=== PATIENT | male | born 1955 | race Caucasian/White ===

== ENCOUNTER 2025-02-19 11:49 | Day surgery (SDC) | payer MEDICARE, BC ==
[2025-02-15 12:31] LABS: MEAN PLATELET VOLUME 10.0 FL (7.4-10.4); RED CELL DISTRIBUTION WIDTH 16.9 % (11.5-14.5)
[2025-02-15 12:45] LABS: APTT 24 SECONDS (22-32); INR 1.0 INR
[2025-02-15 12:50] LABS: CHOL/HDL RATIO 4.5 (0.00-4.99); CREATININE 5.28 MG/DL (0.60-1.10); LDL CHOLESTEROL 140 MG/DL (50-100); TOTAL CARBON DIOXIDE 27.6 MMOL/L (24-32); eGFR 11 ML/MIN
[~2025-02-19] VITALS: Ht 180.3 cm; Wt 86.5 kg
[2025-02-19] VITALS (9 sets, daily range): BP systolic 92–172; BP diastolic 35–83; PULSE 48–64; RESP 16; TEMP 98.7; O2SAT 97–100
[2025-02-19] MEDS ORDERED: ABIR250T PO (12:16)
[2025-02-19] MEDS ORDERED: PRED5TAB PO (12:16)
[2025-02-19] MEDS ORDERED: ASPI-1265 PO (12:17)
[2025-02-19] MEDS ORDERED: GABA-530 PO (12:18)
[2025-02-19] MEDS ORDERED: LACO100T14 PO (12:18)
[2025-02-19] MEDS ORDERED: MIRT-88 PO (12:18)
[2025-02-19] MEDS ORDERED: AMLO10TA13 PO (12:18)
--- NOTE | 2025-02-19 12:43 | ELECTROCARDIOGRAPH REPORT ---
[facility] Test Date: 2025-02-19 Test Time: 13:38:20 Pat Name: KELSEY MAURICE Department: [facility] Patient ID: [facility]-[id number] Room: Gender: M [employer]: : 1955 Requested By: JOELLE FERNANDEZ Order Number: [id number] Reading MD: Dr. MYRIAM Crawford Measurements Intervals [place] Rate: 54 P: -63 SC: 199 QRS: -14 QRSD: 104 T: 190 QT: 439 QTc: 416 Interpretive Statements Sinus or ectopic atrial rhythm LVH with secondary repolarization abnormality Electronically Signed On 02-19-2025 13:22:[address] MYRIAM Crawford Please click the below link to view image of tracing.
[2025-02-19] MEDS ORDERED: LIDOcaine 1% (10mg/ml) 2ml vial ONE (14:52)
[2025-02-19] MEDS ORDERED: heparin 1,000unit/ml 10ml vial 10 ML ONE (14:53)
[2025-02-19] MEDS ORDERED: midazolam 1 mg/ML 2ml injection ONE ×2 (14:53→15:46)
[2025-02-19] MEDS ORDERED: verapamil 2.5 mg/ml inj IV ONE (14:53)
[2025-02-19] MEDS ORDERED: fentaNYL/PF 50MCG/1 ML 2ML syringe ONE (14:53)
[2025-02-19] MEDS ORDERED: nitroGLYCERIN 500mcg/5mL D5W 5 ML IV ONE (14:54)
[2025-02-19] MEDS ORDERED: LIDOcaine 1% 30ml preserv. free vial ONE (15:38)
[2025-02-19] MEDS ORDERED: hydrALAZINE 20mg/ml inj. ONE (16:17)
[2025-02-19] MEDS ORDERED: OXAZEpam 15mg capsule PO PRN (17:10)
[2025-02-19] MEDS ORDERED: ondansetron/PF 4mg/2ml inj IV PRN (17:10)
[2025-02-19] MEDS ORDERED: HYDROcodone/acetaminophen 5mg/325mg tablet PO PRN (17:10)
[2025-02-19] MEDS ORDERED: HYDROcodone/acetaminophen 10/325mg tab PO PRN (17:10)
[2025-02-20 05:53] LABS: ISTAT HGB MIX 10.5 g/dl (14.0-17.9); ISTAT Hct MIX 31 %PCV (42-52); ISTAT O2 SATURATION MIX VENOUS 66 % (60-80); ISTAT SOURCE VEN
--- NOTE | 2025-03-10 07:53 | CARDIOLOGY REPORT ---
DATE OF SERVICE: 02/19/2025 DICTATING PHYSICIAN: Jeffrey Max MD CARDIAC CATHETERIZATION REPORT DATE OF STUDY: 02/19/2025 PROCEDURES: 1. Right heart catheterization. 2. Selective coronary angiography. 3. Conscious sedation monitoring time for 30 minutes. INDICATION: Aortic stenosis. PHYSICIAN: Jeffrey Max MD DESCRIPTION OF PROCEDURE: After informed consent was obtained, the patient was brought to the lab where he was prepped and draped in the usual sterile fashion. A 6-Tajik sheath was inserted into the right common femoral artery and an 8-Tajik sheath in the right femoral vein. Thereafter, using a JL4 followed by a JR4 catheter, selective coronary angiography was performed. Next, using a Rheems-Kaur catheter, the catheter was advanced under fluoroscopic guidance into the outflow tract and into a wedge position where pulmonary capillary wedge pressure and right-sided pressures were obtained. Hemostasis was then obtained using manual pressure. HEMODYNAMICS: For the patient's hemodynamics, please refer to the event log. Pulmonary capillary wedge pressure was 11/13 with a mean of 10 mmHg. Pulmonary arterial pressure was 35/19 with a mean of 24 mmHg. Right ventricular pressure was 35/19 with a mean of 24 mmHg. Right atrial pressure was 20/17 with a mean of 16 mmHg. PA saturation was 66%. AO saturation 96%. Cardiac output by thermal dilution was 4.9 L per minute; by Jarod 2.4 L per minute. FINDINGS: The left main coronary arteries are normal caliber vessel, free of significant disease. The left anterior descending coronary artery is a medium caliber vessel. Calcification versus stent in the mid LAD is noted. The diagonal branch of the LAD has 70%-80% ostial and proximal stenosis. The circumflex coronary artery is a large caliber vessel. There appears to be a stent in the obtuse marginal branch of the circumflex coronary artery. A division immediately at the takeoff of the obtuse marginal branch is a small caliber vessel with an 80% stenosis. The right coronary artery is a medium caliber calcified vessel that also appears to have previously deployed stent in the proximal to mid RCA. 20%-30% distal stenosis is also noted. IMPRESSION: 1. Patent stent in the LAD. The diagonal branch of the LAD has a long 70%-80% ostial/proximal stenosis. 2. Patent circumflex coronary artery stent with an 80%-90% stenosis of a small division of the obtuse marginal branch. 3. Patent RCA proximal to mid stent with 20%-30% in-stent restenosis. 4. The patient's mean pulmonary capillary wedge pressure is 10 mmHg and mean pulmonary arterial pressure is 24 mmHg. 5. Cardiac output is 4.9 L per minute by thermal dilution. Jeffrey Max MD TID: [id number] RECEIPT: [id number] SHANNAN/IRINEO
== END 2025-02-19 19:45 | disposition home or self-care (01) ==
LOC: SSTAY O 11:49
PROVIDERS: ATTEND Student in an Organized Health Care Education/Training Program
DX: T82.855A Stenosis of coronary artery stent, initial encounter (principal); I35.0 Nonrheumatic aortic (valve) stenosis; I10 Essential (primary) hypertension; I25.10 Atherosclerotic heart disease of native coronary artery without angina pectoris; E78.00 Pure hypercholesterolemia, unspecified; Z79.82 Long term (current) use of aspirin; Z79.899 Other long term (current) drug therapy; Z88.2 Allergy status to sulfonamides; Z88.8 Allergy status to other drugs, medicaments and biological substances; Y83.1 Surgical operation with implant of artificial internal device as the cause of abnormal reaction of the patient, or of later complication, without mention of misadventure at the time of the procedure; Y92.89 Other specified places as the place of occurrence of the external cause
CPT/HCPCS: 36415; 80048; 80061; 82803; 85014; 85025; 85610; 85730; 93005; 93456; 99152; 99153; A6258; A6402; C1751; C1760; C1769; C1894; J0360; J1644; J2003; J2250; J3010; J3490; J7030; Q0163; Q9967; Z7610

== ENCOUNTER 2025-04-09 10:10 | Outpatient (CLI) | payer MEDICARE, BC ==
[~2025-04-09 10:10] MED LIST: ABIR250T PO; AMLO10TA13 PO; ASPI-1265 PO; GABA-530 PO; IODIXANOL 320 MG/ML INFUS..BTL 100ML IV ONE; LACO100T14 PO; MIRT-88 PO; PRED5TAB PO
[2025-04-09 10:45] LABS: MEAN PLATELET VOLUME 9.6 FL (7.4-10.4); RED CELL DISTRIBUTION WIDTH 15.4 % (11.5-14.5)
[2025-04-09 10:57] LABS: APTT 28 SECONDS (22-32); INR 1.0 INR
[2025-04-09 11:00] LABS: CREATININE 4.81 MG/DL (0.60-1.10); TOTAL CARBON DIOXIDE 27.2 MMOL/L (24-32); eGFR 12 ML/MIN
--- NOTE | 2025-04-09 11:50 | RADIOLOGY REPORT ---
CHEST RADIOGRAPH INDICATION: SOB TAVR TECHNIQUE: Frontal and lateral view of the chest was obtained COMPARISON: None FINDINGS: Lines and Tubes: None Lungs: Increased interstitial markings right middle lobe. Focal pneumonitis can not be excluded. No consolidation. Pleura: No effusion. No pneumothorax. Cardiomediastinal contours: Unremarkable Bones: Unremarkable IMPRESSION: 1. Increased interstitial markings right middle lobe. 2. Focal pneumonitis can not be excluded.
[2025-04-09] MEDS ORDERED: IODIXANOL 320 MG/ML INFUS..BTL 100ML IV ONE (12:09)
--- NOTE | 2025-04-10 13:27 | RADIOLOGY REPORT ---
CT CTA TAVR INDICATION: Aortic stenosis TECHNIQUE: Gated CT angiography of the heart was performed along with CT angiography of the lower neck, chest, abdomen, and pelvis. MIP, MPR, and 3-D images were obtained. Measurements were performed on the [employer] workstation. All CT scans at this facility use dose modulation, iterative reconstruction, and/or weight based dosing when appropriate to reduce radiation dose to as low as reasonably achievable. COMPARISON: None available at the time of dictation. FINDINGS: ANNULAR PLANE DISTANCE: 29.3 x 23.7 mm AREA: 5.01 cm2 AVERAGE DIAMETER: 26.5 mm PERIMETER: 80.9 mm LEFT CORONARY ARTERY HEIGHT ABOVE ANNULAR PLANE: 19.1 mm RIGHT CORONARY ARTERY HEIGHT ABOVE ANNULAR PLANE: 19.2 mm LEFT CORONARY SINUS DIAMETER: 36.7 mm RIGHT CORONARY SINUS DIAMETER: 36.2 mm NONCORONARY CORONARY SINUS DIAMETER: 36.9 mm SINOTUBULAR JUNCTION DIAMETER: 28.9 mm RIGHT COMMON ILIAC ARTERY MINIMAL DIMENSIONS: 9.79 mm RIGHT EXTERNAL ILIAC ARTERY MINIMAL DIMENSIONS: 8.99 mm RIGHT COMMON FEMORAL ARTERY MINIMAL DIMENSIONS: 6.88 mm LEFT COMMON ILIAC ARTERY MINIMAL DIMENSIONS: 10.3 mm LEFT EXTERNAL ILIAC ARTERY MINIMAL DIMENSIONS: 8.21 mm LEFT COMMON FEMORAL ARTERY MINIMAL DIMENSIONS: 6.59 mm [LOWER NECK]: Unremarkable [LYMPH NODES/MEDIASTINUM]: No abnormal lymph nodes by CT size criteria [CARDIOVASCULAR]: Normal cardiac size. No pericardial effusion. No aneurysmal dilatation of the great vessels. Coronary artery calcifications. [LUNG PARENCHYMA/PLEURAL SPACE]: No consolidation. Areas of pleural-parenchymal scarring located in the anterior segment, right upper lobe. Atelectasis in bilateral lung bases. No pleural effusion or pneumothorax. [CHEST WALL]: Mild bilateral gynecomastia. [LIVER]: Normal hepatic size without suspicious focal lesion. [SPLEEN]: Small hypoattenuating lesion along the medial aspect of the spleen measuring 0.8 cm, likely benign. [PANCREAS]: Unremarkable. [GALLBLADDER AND BILIARY TREE]: No biliary dilatation. Slight mucosal hyperenhancement gallbladder without definitive cholelithiasis [ADRENAL GLANDS]: Slight fatty infiltration of the superior aspect of the left adrenal gland without significant thickening which may represent sequelae of infection /inflammation. [KIDNEYS]: Status post surgical removal of bilateral kidneys. [BLADDER]: Decompressed [PELVIC ORGANS]: Prostatectomy [BOWEL/MESENTERY]: Stomach is decompressed. Proximal gastric rugal prominence. Scattered colonic diverticulosis without definitive CT evidence of acute diverticulitis. [ASCITES]: Absent [LYMPHADENOPATHY]: No pathologically enlarged lymph nodes by CT size criteria [VASCULATURE]: Vascular calcifications. mixed atherosclerotic plaque along the course of the superior mesenteric artery causing less than 50 percent stenosis. [ABDOMINAL WALL]: Unremarkable. [MUSCULOSKELETAL]: Areas of sclerosis of L5 concerning for osseous metastatic disease as well as of the anterior aspect of T10. Multifocal degenerative change of the visualized spine. Trace fat containing umbilical hernia. Prior left anterior 4th, 5th rib fractures with callus formation. Right anterior 3rd rib sclerosis of indeterminate etiology which may be related to osseous metastatic disease adjacent to the anterior right upper lobe consolidation /oval-shaped area of the airspace opacity measuring 1.5 cm. IMPRESSION: 1. Calculations for TAVR evaluation as above. 2. No area of lymphadenopathy 3. Indeterminate area of right anterior 3rd rib sclerosis with underlying 1.5 cm oval-shaped area of density/consolidation. 4. 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
== END 2025-04-09 23:59 | disposition home or self-care (01) ==
LOC: RAD 10:10
PROVIDERS: ATTEND Internal Medicine Cardiovascular Disease
DX: S22.42XA Multiple fractures of ribs, left side, initial encounter for closed fracture (principal); S22.31XA Fracture of one rib, right side, initial encounter for closed fracture; I35.0 Nonrheumatic aortic (valve) stenosis; R06.02 Shortness of breath; I65.29 Occlusion and stenosis of unspecified carotid artery; I25.10 Atherosclerotic heart disease of native coronary artery without angina pectoris; J98.11 Atelectasis; C79.51 Secondary malignant neoplasm of bone; N62 Hypertrophy of breast; Z90.5 Acquired absence of kidney; Z90.49 Acquired absence of other specified parts of digestive tract; K57.30 Diverticulosis of large intestine without perforation or abscess without bleeding; K55.1 Chronic vascular disorders of intestine; X58.XXXA Exposure to other specified factors, initial encounter; Y93.89 Activity, other specified; Y92.89 Other specified places as the place of occurrence of the external cause; Y99.8 Other external cause status
CPT/HCPCS: 36415; 71046; 71275; 74174; 75572; 80053; 85025; 85610; 85730; Q9967